=== PATIENT | female | born 1975 | race Hispanic/Latino ===

== ENCOUNTER 2021-05-26 11:01 | Emergency (ER) | payer MEDICAID ==
[~2021-05-26] VITALS: Ht 160 cm; Wt 88.0 kg
[2021-05-26 11:55] LABS: HEMATOCRIT 36.2 % (37.0-47.0); IMMATURE GRANULOCYTES 0.2 % (0.0-5.0); MEAN CELL VOLUME 81.5 fL CALC (80.0-100.0); MEAN CORPUSCULAR HGB 24.8 pG CALC (26.0-32.0); MEAN CORPUSCULAR HGB CONC 30.4 g/dL CAL (32.0-36.0); NEUT# 4.2 thou/uL (2.00-7.15); RED BLOOD COUNT 4.44 mill/uL (4.20-5.60); RED CELL DISTRI WIDTH 15.6 % (11.5-15.5)
[2021-05-26 12:01] LABS: ALBUMIN 3.7 g/dL (3.2-5.0); ALKALINE PHOSPHATASE 82 u/l (38-126); ANION GAP 12 (6-22 (CALC)); BILIRUBIN, TOTAL 0.7 mg/dL (0.0-1.4); BUN 14 mg/dL (7-17); BUN/CREATININE RATIO 20 (12-20 (CALC)); CARBON DIOXIDE 25 mmol/l (22-30); CHLORIDE 104 mmol/l (95-108); CREATININE 0.7 mg/dL (0.5-1.0); GFR > 60 ML/MIN (>=60 (CALC)); GFR FOR AFR.AMER. > 60 ML/MIN (>=60 (CALC)); SGOT/AST 24 u/l (14-36); SODIUM 138 mmol/l (137-146); TOTAL PROTEIN 7.2 g/dL (6.3-8.2)
[2021-05-26] MEDS ORDERED: LEVOTHYROXIN125 MCG PO (12:10)
[2021-05-26] MEDS ORDERED: PROTONIX20 M1 PO (12:11)
[2021-05-26] MEDS ORDERED: ALLEGRA-D 2424 HOUR PO (12:11)
[2021-05-26] MEDS ORDERED: IBUPROFEN600 MG PO (12:12)
[2021-05-26] MEDS ORDERED: ALBUTEROL SUL0.083 % IN (12:13)
[2021-05-26] MEDS ORDERED: PROAIR HFA108 MCG/AC (12:13)
[2021-05-26] MEDS ORDERED: ZPAK PO (12:43)
[2021-05-26] MEDS ORDERED: ONDANSETRON4 MG PO (12:43)
[2021-05-26] MEDS ORDERED: AMOX/K CLAV875 M1 PO (12:43)
[2021-05-26] MEDS ORDERED: PROAIR HFA108 MCG/AC PO (12:50)
[2021-05-26 13:10] VITALS: BP 144/92
[2021-05-26] MEDS ORDERED: IPRATROPIU0.5 MG/3 M IN (13:12)
== END 2021-05-26 13:10 | disposition home or self-care (01) ==
LOC: ED 11:01
PROVIDERS: Family Medicine
DX: J18.9 Pneumonia, unspecified organism (principal); J45.909 Unspecified asthma, uncomplicated; Z20.822 Contact with and (suspected) exposure to COVID-19

== ENCOUNTER 2022-02-09 18:55 | Emergency (ER) | payer MEDICAID ==
[2022-02-09] VITALS (11 sets, daily range): BP systolic 128–155; BP diastolic 71–91
[~2022-02-09] VITALS: Ht 160 cm; Wt 98.0 kg
[~2022-02-09 18:55] MED LIST: ALBUTEROL SUL0.083 % IN; ALLEGRA-D 2424 HOUR PO; AMOX/K CLAV875 M1 PO; IBUPROFEN600 MG PO; IPRATROPIU0.5 MG/3 M IN; LEVOTHYROXIN125 MCG PO; ONDANSETRON4 MG PO; PROAIR HFA108 MCG/AC; PROAIR HFA108 MCG/AC PO; PROTONIX20 M1 PO; ZPAK PO
[2022-02-09 19:54] LABS: HEMATOCRIT 33.4 % (37.0-47.0); HEMOGLOBIN 10.3 g/dl (12.0-16.0); IMMATURE GRANULOCYTES 0.3 % (0.0-5.0); MEAN CELL VOLUME 75.6 fL CALC (80.0-100.0); MEAN CORPUSCULAR HGB 23.3 pG CALC (26.0-32.0); MEAN CORPUSCULAR HGB CONC 30.8 g/dL CAL (32.0-36.0); NEUT# 3.9 thou/uL (2.00-7.15); RED BLOOD COUNT 4.42 mill/uL (4.20-5.60)
[2022-02-09 20:05] LABS: ALBUMIN 3.8 g/dL (3.2-5.0); ALKALINE PHOSPHATASE 95 u/l (38-126); ANION GAP 8 (6-22 (CALC)); BILIRUBIN, TOTAL 0.6 mg/dL (0.0-1.4); BUN 15 mg/dL (7-17); BUN/CREATININE RATIO 18 (12-20 (CALC)); CARBON DIOXIDE 29 mmol/l (22-30); CHLORIDE 104 mmol/l (95-108); CPK 64 u/l (30-165); CREATININE 0.8 mg/dL (0.5-1.0); GFR FOR AFR.AMER. > 60 ML/MIN (>=60 (CALC)); GFR OTHER RACES > 60 ML/MIN (>=60 (CALC)); MAGNESIUM 1.9 mg/dL (1.6-2.3); POTASSIUM 3.7 mmol/l (3.5-5.1); SGOT/AST 29 u/l (14-36); SODIUM 137 mmol/l (137-146)
[2022-02-09 20:11] LABS: D-DIMER 0.9 mg/L (0.19-0.60)
[2022-02-09 20:13] LABS: PROTHROMBIN TIME 9.8 SECONDS (9.0-12.5)
[2022-02-09 21:27] LABS: URINE BILIRUBIN - DIPSTICK NEGATIVE (NEGATIVE); URINE BLOOD DIPSTICK NEGATIVE (NEGATIVE); URINE COLOR YELLOW; URINE GLUCOSE - DIPSTICK NEGATIVE (NEGATIVE); URINE KETONE NEGATIVE (NEGATIVE); URINE LEUK ESTERASE NEGATIVE (NEGATIVE); URINE PROTEIN - DIPSTICK NEGATIVE (NEG-TRACE); URINE SPECIFIC GRAVITY 1.015; URINE UROBILINOGEN - DIPSTICK 0.2 E.U./dL (0.2)
[2022-02-09 21:28] LABS: URINE NITRITE - DIPSTICK NEGATIVE (Negative)
[2022-02-10] MEDS ORDERED: ZOFRAN4 MG/TAB PO (11:59)
[2022-02-10] MEDS ORDERED: MECLIZINE25 M1 PO (11:59)
== END 2022-02-09 23:40 | disposition home or self-care (01) ==
LOC: ED 18:55
PROVIDERS: Nurse Practitioner
DX: R07.9 Chest pain, unspecified (principal); M33.10 Other dermatomyositis, organ involvement unspecified; J45.909 Unspecified asthma, uncomplicated; M79.7 Fibromyalgia; Z20.822 Contact with and (suspected) exposure to COVID-19
CPT/HCPCS: Q9967

== ENCOUNTER 2022-02-10 07:52 | Emergency (ER) | payer MEDICAID ==
[~2022-02-10] VITALS: Ht 154.9 cm; Wt 96.0 kg
[2022-02-10 08:04] VITALS: BP 127/66
[2022-02-10 08:30] VITALS: BP 116/73
[2022-02-10 08:38] LABS: HEMATOCRIT 37.5 % (37.0-47.0); HEMOGLOBIN 11.6 g/dl (12.0-16.0); IMMATURE GRANULOCYTES 0.4 % (0.0-5.0); MEAN CORPUSCULAR HGB 22.9 pG CALC (26.0-32.0); MEAN CORPUSCULAR HGB CONC 30.9 g/dL CAL (32.0-36.0); NEUT# 7.48 thou/uL (2.00-7.15); RED BLOOD COUNT 5.07 mill/uL (4.20-5.60); RED CELL DISTRI WIDTH 17.4 % (11.5-15.5)
[2022-02-10 08:47] LABS: ALBUMIN 4.5 g/dL (3.2-5.0); ALKALINE PHOSPHATASE 110 u/l (38-126); ANION GAP 18 (6-22 (CALC)); BILIRUBIN, TOTAL 0.8 mg/dL (0.0-1.4); BUN 16 mg/dL (7-17); BUN/CREATININE RATIO 23 (12-20 (CALC)); CHLORIDE 105 mmol/l (95-108); CREATININE 0.7 mg/dL (0.5-1.0); GFR FOR AFR.AMER. > 60 ML/MIN (>=60 (CALC)); GFR OTHER RACES > 60 ML/MIN (>=60 (CALC)); POTASSIUM 3.8 mmol/l (3.5-5.1); SGOT/AST 39 u/l (14-36); SODIUM 139 mmol/l (137-146); TOTAL PROTEIN 8.3 g/dL (6.3-8.2)
[2022-02-10 08:50] LABS: CARBON DIOXIDE 20 mmol/l (22-30)
[2022-02-10 10:40] VITALS: BP 136/79
[2022-02-10 11:01] VITALS: BP 131/81
[2022-02-10 11:31] VITALS: BP 122/75
[2022-02-10] MEDS ORDERED: MECLIZINE25 M1 PO (11:59)
[2022-02-10] MEDS ORDERED: ZOFRAN4 MG/TAB PO (11:59)
[2022-02-10 12:14] VITALS: BP 122/75
[2022-02-10 12:36] LABS: URINE BILIRUBIN - DIPSTICK NEGATIVE (NEGATIVE); URINE BLOOD DIPSTICK NEGATIVE (NEGATIVE); URINE COLOR YELLOW; URINE GLUCOSE - DIPSTICK NEGATIVE (NEGATIVE); URINE KETONE 15 mg/dL (NEGATIVE); URINE LEUK ESTERASE NEGATIVE (NEGATIVE); URINE PROTEIN - DIPSTICK NEGATIVE (NEG-TRACE); URINE UROBILINOGEN - DIPSTICK 0.2 E.U./dL (0.2)
[2022-02-10 12:56] LABS: URINE NITRITE - DIPSTICK NEGATIVE (Negative)
== END 2022-02-10 12:29 | disposition home or self-care (01) ==
LOC: ED 07:52
PROVIDERS: Emergency Medicine
DX: R42 Dizziness and giddiness (principal); R51.9 Headache, unspecified; J45.909 Unspecified asthma, uncomplicated